=== PATIENT | female | born 1960 | race Caucasian/White ===

== ENCOUNTER → 2018-01-06 08:51 | Day surgery (SDC) | payer BC ==
[~2018-01-06 08:51] MED LIST: Buffered Lidocaine 0.9% SYRIN* 5 ML/SYR SYRINGE INTRADERM ONE; Dexamethasone TAB* 4 MG ONE; Dexamethasone TAB* 4 MG PO ONE; DiMENhydriNATE IV* 50 MG/ML VIAL IV PUSH PRN; Famotidine IV* 10 MG/ML 2 ML (20 mg) IV ONE; Famotidine IV* 10 MG/ML 2 ML (20 mg) ONE; KETAMINE HCL* 50 MG/ML 10 ML VIAL ONE; Lidocaine 1% INJ* 10 MG/ML 30 ML SDV ONE; Lidocaine 2% PF * 5 ML VIAL ONE; Midazolam* 1 MG/ML 5 ML VIAL (5 MG) ONE; Morphine INJ* 2 MG/ML 1 ML SYRINGE (TWO MG - NEW SYRINGE VERSION) IV PRN; Naloxone* 0.4 MG/ML 1 ML VIAL IV PRN; Ondansetron INJ* 2 MG/ML VIAL ONE; Ondansetron ODT TAB* 4 MG ONE; PROCHLORPERAZINE INJ 5 MG/ML 2 ML VIAL IV PRN; Propofol* 500 MG/50 ML BTL ONE; Ropivacaine* 2 MG/ML 20 ML VIAL (0.2%) ONE; fentaNYL* 50 MCG/ML 2 ML VIAL (100 MCG VIAL) IV PRN; fentaNYL* 50 MCG/ML 2 ML VIAL (100 MCG VIAL) ONE; oxyCODONE/Acetamin 5/325 MG* TAB PO PRN
[2018-01-06 13:27] VITALS: BP 144/90
--- NOTE | 2018-01-06 21:38 | OP ---
DATE OF OPERATION: 01/06/18 - [facility] DATE OF : 58 SURGEON: Kamlesh Reyna MD SCALES INSPECTOR: Maryjo Avila. ANESTHESIOLOGIST: Dr. Ortega. ANESTHESIA: Local MAC. PRE-OP DIAGNOSES: 1. Left wrist de Quervain's disease. 2. Left wrist proliferative first dorsal compartment tenosynovitis. POST-OP DIAGNOSES: OPERATIVE PROCEDURE: Left wrist de Quervain's release with tenosynovectomy. INDICATIONS: Kelsea has had severe left radial-sided wrist pain related to the first dorsal compartment. She has some lumps and bumps where she has some tenosynovitis. I talked to her about the need to release the tendons and then perform tenosynovectomy. She understood and she wants to proceed. ESTIMATED BLOOD LOSS: 2 mL. COMPLICATIONS: None. FINDINGS: See above and below. DESCRIPTION OF PROCEDURE: Kelsea was seen in the preoperative holding area. The correct side, site, and procedure were identified. We came back to the operating room. The arm was prepped and draped after we had had had a time-out and I had infiltrated the operative area with a mixture of 1% lidocaine and 0.2 % ropivacaine. A time-out was performed. I exsanguinated the arm with the Esmarch and the tourniquet was inflated to 250 mmHg. I then made a 2 cm transverse incision over the first dorsal compartment just proximal to the radial styloid. Dissection was carried down. The radial sensory nerve was visualized and retracted dorsally. The sheath was opened with a 15 blade along the dorsal margin. Immediately, abundant tenosynovitis protruded from where I opened the sheath. I went ahead and completed the release of the sheath with the tenotomy scissors distally and proximally. I then took quite some time to perform a full tenosynovectomy. An abundant amount of tenosynovitis was excised and this was sent as a specimen to the lab. Once everything was nice and clean and there was no further tenosynovitis noted on the tendons, we irrigated out the wound. The skin was closed with 4-0 Monocryl suture and a Steri-Strip. The wounds were dressed and she was taken to the recovery room in stable condition. [id number]/[facility] #: [id number] [facility]
== END | disposition home or self-care (01) ==
LOC: OR 08:51
PROVIDERS: ATTEND Orthopaedic Surgery Hand Surgery
DX: M65.4 Radial styloid tenosynovitis [de Quervain] (principal); M18.12 Unilateral primary osteoarthritis of first carpometacarpal joint, left hand
CPT/HCPCS: 88304; A9270-GY; J2250; J2704; J2795; J3010; J8540